=== PATIENT | male | born 1945 | race Caucasian/White ===

== ENCOUNTER 2023-02-15 17:44 | Inpatient (IN) | payer OTHER, MEDICAID, SELFPAY ==
[2023-02-15] VITALS (9 sets, daily range): BP systolic 97–124; BP diastolic 59–68; PULSE 85–124; RESP 18–21; TEMP 36.9–37.1; O2SAT 95–100
--- NOTE | ~2023-02-15 | XR_ITS ---
EXAMINATION: XR chest 1V portable Exam Date/Time: 02/15/2023 18:00 ORDER DISPATCHER CHIEF HISTORY: weakness Comparison: 02/16/2017; CT cap 04/15/2017. RESULT: Lines, tubes, and devices: None. Lungs and pleura: Emphysematous/senescent change. Volume loss and architectural distortion in the le ft lung. Right basilar subsegmental airspace disease with minimal right lateral costophrenic angle bl unting. Cardiomediastinal silhouette: Stable. Other: No acute osseous or upper abdominal finding. IMPRESSION: Subsegmental right basilar opacity may represent atelectasis given the adjacent volume loss. Infectio n/aspiration not excluded. Severe emphysematous change. Reviewed, dictated and finalized at location K. R DISPATCHER CHIEF IMPRESSION: Subsegmental right basilar opacity may represent atelectasis given the adjacent volume loss. Infection/aspiration not excluded. Severe emphysematous change.
--- NOTE | 2023-02-15 17:52 | ECG_ITS ---
Measurements Intervals [place] Rate: 97 P: [place]: 0 QRS: -37 QRSD: 84 T: 87 QT: 344 QTc: 437 Interpretive Statements SUPRAVENTRICULAR RHYTHM (SIGNIFICANT BASELINE ARTIFACT) LEFT AXIS DEVIATION BORDERLINE ST-T WAVE ABNORMALITY- ANTEROLATERAL LEADS BASELINE ARTIFACT- I, II, III, AVR, AVL, AVF, V1-V6 ABNORMAL ECG NO PREVIOUS ECG AVAILABLE FOR COMPARISON Electronically Signed On 02-15-2023 19:26:37 [employer] OFFICER by Isrrael Cuevas D.O.
[2023-02-15 18:18] LABS: Alanine Aminotransferase 17 U/L (6-50); Albumin Level 3.5 g/dL (3.5-5.1); Alkaline Phosphatase 73 U/L (38-126); Anion Gap 9 mmol/L (8-16); Aspartate Amino Transferase 53 U/L (17-59); Bilirubin,Total 0.6 mg/dL (0.2-1.3); Blood Urea Nitrogen 32 mg/dL (9-20); Calcium 8.3 mg/dL (8.4-10.2); Carbon Dioxide 30 mmol/L (22-30); Chloride 98 mmol/L (98-107); Estimated CRCL calculation 35 ml/min; Estimated Glomerular Filt Rate 42; Glucose 113 mg/dL (65-110); Potassium 4.2 mmol/L (3.4-5.0); Sodium 137 mmol/L (137-145)
[2023-02-15 18:27] LABS: Basophils Percent Auto 0.1 % (0.2-1.2); Hematocrit 38.3 % (42.0-52.0); Hemoglobin 12.2 g/dL (14.0-18.0); Immature Granulocyte Absolute 0.04 K/mm3 (0.00-0.031); Immature Granulocyte Percent A 0.5 % (0-0.5); Lymphocytes Absolute Auto 1.41 K/mm3 (0.9-3.2); Lymphocytes Percent Auto 17.1 % (18.3-44.2); Mean Corpuscular HGB Conc 31.9 g/dl (32-36); Mean Corpuscular Hemoglobin 30.3 pg (26-34); Mean Corpuscular Volume 95.3 fl (80-100); Monocytes Absolute Auto 0.8 K/mm3 (0.1-0.6); Monocytes Percent Auto 9.2 % (2.6-8.5); Neutrophils Percent Auto 73.1 % (45.5-73.1); Platelet Count Result 168 k/mm3 (150-375); Red Blood Count 4.02 M/mm3 (4.6-6.20); Red Cell Distribution Width 13.2 % (11.5-14.5); White Blood Count 8.3 K/mm3 (4.5-10.0)
--- NOTE | 2023-02-15 18:45 | ECG_ITS ---
Measurements Intervals [place] Rate: 93 P: 87 [place]: 158 QRS: -18 QRSD: 90 T: 86 QT: 336 QTc: 418 Interpretive Statements SINUS OR ECTOPIC ATRIAL RHYTHM (SIGNIFICANT BASELINE ARTIFACT) LOW QRS VOLTAGE IN PRECORDIAL LEADS BASELINE ARTIFACT- I, II, III, AVR, AVL, AVF, V1-V6 BORDERLINE ECG COMPARED TO ECG 02/15/2023 18:00:23 SINUS OR ECTOPIC ATRIAL RHYTHM NOW PRESENT Electronically Signed On 02-15-2023 19:30:08 FIRE SYSTEMS INSPECTOR by Isrrael Cuevas D.O.
[2023-02-15 18:53] LABS: Influenza A QL RT-PCR Negative (Negative); Influenza B QL RT-PCR Negative (Negative); RSV RNA, RT-PCR Negative (Negative); SARS-CoV-2 RNA PCR Positive (Negative)
--- NOTE | 2023-02-15 19:15 | PC.NURSE ---
at bedside states pt is nonverbal. Denies any diagnosis associated with non verbal, states He just doesn't talk . Pt COPD requires home oxygen at 2l. Requiring oxygen at 4l. Rhonchi thru out all lung [place] with congested cough
--- NOTE | 2023-02-15 19:28 | ED.WEAKNESS ---
HPI - Weakness General Chief complaint: Weakness Stated complaint: AMS, weak, lethargic x 2 days Time Seen by Provider: 02/15/23 18:35 History of Present Illness HPI Narrative: 77-year-old male with history of COPD on 4 L nasal cannula presenting with generalized weakness. Patient's is at bedside and helps with the history. He states that he has been increasingly weak her the last few days. He has been having an increasingly productive cough. Today he was so weak that she was unable to get him off of the toilet. States that he has had decreased appetite. They have been trying breathing treatments which helped some cough up a lot of phlegm. He denies any pain. No nausea or vomiting. He has been having diarrhea. Related Data Home Medications Medication Instructions Recorded Confirmed budesonide 0.5 mg/2 mL suspension 0.5 mg inhalation PRN PRN wheezes 02/16/23 02/16/23 for nebulization gabapentin 300 mg capsule 300 mg PO TID 02/16/23 02/16/23 ipratropium 0.5 mg-albuterol 3 mg 3 ml inhalation PRN PRN Shortness 02/16/23 02/16/23 (2.5 mg base)/3 mL nebulization Of Breath Or Wheezing soln omeprazole 40 mg capsule,delayed 40 mg PO DAILY 02/16/23 02/16/23 release risperidone 2 mg tablet 2 mg PO DAILY 02/16/23 02/16/23 Allergies Allergy/AdvReac Type Severity Reaction Status Date / Time No Known Allergies Allergy Mild Verified 02/15/23 19:17 Review of Systems Review of Systems: All systems reviewed & are unremarkable except as noted in HPI and below [facility] Family History Family History Mother Family history of diabetes mellitus in first degree relative Family history of heart disease in male family member before age 55 Social History Social History Smoking status: Former smoker Tobacco type: cigarettes Alcohol intake: never Substance use: never Substance use type: does not use Do You Feel Safe in your Home?: Yes Lack of Transportation: No Lack of Food: Never True Current Housing: I Have Housing Concerned About Future Housing: No Difficulty Paying Gas/Electric Bills: No Difficulty Paying for Meds: No Currently Unemployed: No Education: Grade School Difficulty w/ Childcare or Family Care: No Spiritual care concerns: No Exam Narrative: GENERAL: Appears chronically ill, nontoxic, no acute distress HEAD: Normocephalic, atraumatic. EYES: PERRLA and EOMI. ENT: Mucous membranes moist. NECK: Supple. CHEST: No respiratory distress. diminished breath sounds bilaterally with scattered wheezing, on baseline 4L NC HEART: Regular rate and rhythm. ABDOMEN: Soft, nontender, nondistended EXTREMITIES: Normal range of motion. No edema. SKIN: Warm, dry, no rash. NEURO: Alert and oriented x3. PSYCH: Normal mood and affect. Course Vital Signs Vital signs: Vital Signs Temperature 98.8 F 02/15/23 17:46 Pulse Rate 96 02/15/23 17:46 Respiratory Rate 20 02/15/23 17:46 Blood Pressure 123/68 02/15/23 17:46 Pulse Oximetry 96 02/15/23 17:46 Oxygen Delivery Nasal Cannula 02/15/23 17:46 Oxygen Flow Rate 4 02/15/23 17:46 Temperature 97.2 F L 02/18/23 05:28 Pulse Rate 80 02/18/23 14:13 Respiratory Rate 16 02/18/23 14:13 Blood Pressure 105/59 L 02/18/23 05:28 Pulse Oximetry 98 02/18/23 08:30 Oxygen Delivery Nasal Cannula 02/18/23 08:30 Oxygen Flow Rate 4 02/18/23 08:30 MDM - Weakness MDM Narrative Medical decision making narrative: 77-year-old male presenting with generalized weakness. Vitals are stable. He is on his baseline 4 L nasal cannula and saturating well. He does have diminished breath sounds bilaterally with scattered wheezing. Will treat with some steroids, breathing treatment, fluids. patient is positive for COVID-19. Patient feels his breathing is a bit better after the breathing treat
[2023-02-15] MEDS: ALBUTEROL SULFATE NEB 2.5 MG/3 ML INH 10 MG INHALATION (19:47)
[2023-02-15] MEDS: IPRATROPIUM BR 0.02% INH SOLN 0.5 MG/2.5 ML VIAL INHALATION (19:47)
--- NOTE | 2023-02-15 19:50 | PC.NURSE ---
Patient's states the patient does not talk much. States he normally is up and walking around the house and toileting on his own. states he has been too weak to care for himself today and has been incontinent. Per , patient is on oxygen at home, 3.5L NC at all times.
[2023-02-15] MEDS: SODIUM CHLORIDE 0.9% IV 1,000 ML 999 ML IV CONT ×2 (19:56→22:41)
[2023-02-15] MEDS: methylPREDNISolone SOD SUCC 125 MG VIAL IV PUSH (19:56)
[2023-02-15] MEDS: REMDESIVIR 200 MG/NS 250 ML 200 MG/250 ML BAG 250 MG IVPB (23:03)
[2023-02-16] VITALS (18 sets, daily range): BP systolic 104–130; BP diastolic 56–80; PULSE 66–98; RESP 18–21; TEMP 36.3–36.6; O2SAT 92–100; BMI 24.9
--- NOTE | 2023-02-16 00:07 | PC.NURSE ---
This patient, Quincy Romeo, was admitted to Medical Room 346-01. Patient/family oriented to hospital policies and general routines including ID bracelet, bed and alarms, visiting hours, pain management, procedures, bathroom and other care routines, personal items, smoking policy, room service/diet, and visiting hours. Information on how to activate the Rapid Response Team has been discussed. Patient/Family are encouraged to report perceived risks to care and to ask questions if they do not understand what they are told or what they should do.
[2023-02-16] MEDS: ALBUTEROL SULFATE NEB 2.5 MG/3 ML INH INHALATION ×3 (02:48→21:07)
[2023-02-16] MEDS: IPRATROPIUM BR 0.02% INH SOLN 0.5 MG/2.5 ML VIAL INHALATION ×3 (02:48→21:07)
--- NOTE | 2023-02-16 10:36 | PCRCNOTE ---
Window of time for administration has passed. See next scheduled administration.
--- NOTE | 2023-02-16 12:17 | PM.IMHP ---
H&P: HPI History of Present Illness Date/Time: 02/16/23 12:17 Chief Complaint: Cough shortness Narrative: Patient is 77-year-old male with history of COPD on home oxygen of 4 L comes to the hospital with generalized weakness. Patient's is at bedside in addition given some detailed history at that time. Patient has been progressively getting weak with productive cough and shortness of breath patient unable to get up go to the bathroom. Has lost his appetite and taste. Cough has been productive of lot of phlegm no chest pain no nausea vomiting hematemesis or chills. Patient was admitted ED and was noted to be COVID positive Review of Systems Constitutional: Constitutional: Reports body ache(s) ENT: Reports Normal hearing present, Reports nasal congestion and Reports nasal discharge Cardiovascular: Cardiovascular: Reports no additional cardiovascular complaints Respiratory: Respiratory: Reports chest congestion and Reports cough Gastrointestinal: Gastrointestinal: Reports no additional gastrointestinal complaints Musculoskeletal: Musculoskeletal: Reports back pain and Reports myalgias PMFSH Family History Family History Mother Family history of diabetes mellitus in first degree relative Family history of heart disease in male family member before age 55 Social History Social History Smoking status: Former smoker Tobacco type: cigarettes Alcohol intake: never Substance use: never Substance use type: does not use Do You Feel Safe in your Home?: Yes Lack of Transportation: No Lack of Food: Never True Current Housing: I Have Housing Concerned About Future Housing: No Difficulty Paying Gas/Electric Bills: No Difficulty Paying for Meds: No Currently Unemployed: No Education: Grade School Difficulty w/ Childcare or Family Care: No Spiritual care concerns: No Meds Home Medications and Allergies Home Medications Medication Instructions Recorded Confirmed Type budesonide 0.5 mg/2 mL suspension 0.5 mg inhalation PRN PRN wheezes 02/16/23 02/16/23 History for nebulization gabapentin 300 mg capsule 300 mg PO TID 02/16/23 02/16/23 History ipratropium 0.5 mg-albuterol 3 mg 3 ml inhalation PRN PRN Shortness 02/16/23 02/16/23 History (2.5 mg base)/3 mL nebulization Of Breath Or Wheezing soln omeprazole 40 mg capsule,delayed 40 mg PO DAILY 02/16/23 02/16/23 History release risperidone 2 mg tablet 2 mg PO DAILY 02/16/23 02/16/23 History Allergies Allergy/AdvReac Type Severity Reaction Status Date / Time No Known Allergies Allergy Mild Verified 02/15/23 19:17 Vital Signs Vital Signs - 24 hr 02/15/23 17:46 02/15/23 19:47 02/15/23 20:00 Temperature 37.1 C Pulse Rate 96 85 86 Respiratory Rate 20 20 20 Blood Pressure 123/68 97/59 L Pulse Oximetry 96 96 Oxygen Delivery Nasal Cannula Oxygen Flow Rate 4 02/15/23 21:11 02/15/23 21:38 02/15/23 22:05 Temperature 36.9 C Pulse Rate 124 H 116 H 116 H Respiratory Rate 20 20 20 Blood Pressure 124/63 122/65 Pulse Oximetry 100 99 Oxygen Delivery Oxygen Flow Rate 02/15/23 19:50 02/15/23 19:50 02/15/23 23:00 Temperature Pulse Rate 101 H Respiratory Rate 21 H Blood Pressure 113/65 Pulse Oximetry 97 95 Oxygen Delivery Nasal Cannula Oxygen Flow Rate 3 3 02/15/23 23:26 02/16/23 00:00 02/16/23 00:48 Temperature Pulse Rate 93 92 Respiratory Rate 18 Blood Pressure 117/59 L Pulse Oximetry 96 92 Oxygen Delivery High Flow Therapy with Na Oxygen Flow Rate 3.5 02/16/23 01:10 02/16/23 02:30 02/16/23 02:49 Temperature 36.6 C Pulse Rate 80 95 98 Respiratory Rate 20 20 20 Blood Pressure 104/71 Pulse Oximetry 98 Oxygen Delivery Oxygen Flow Rate 02/16/23 04:00 02/16/23 06:00 02/16/23 08:00 Temperature 36.3 C L Pulse Rate 73
[2023-02-16] MEDS: GABAPENTIN 300 MG CAPSULE PO ×2 (12:55→17:56)
[2023-02-16] MEDS: DEXTROSE 5%/0.45% SOD CHL 1,000 ML 100 ML IV CONT ×2 (12:56→22:18)
[2023-02-16] MEDS: DEXAMETHASONE SOD PHOS INJ 4 MG/ML VIAL IV PUSH ×3 (12:56→23:50)
[2023-02-16 14:14] LABS: Basophils Percent Auto 0.2 % (0.2-1.2); Hematocrit 38.2 % (42.0-52.0); Hemoglobin 11.7 g/dL (14.0-18.0); Immature Granulocyte Absolute 0.04 K/mm3 (0.00-0.031); Immature Granulocyte Percent A 0.4 % (0-0.5); Immature Platelet Fraction Pct 2.7 % (0.9-11.2); Lymphocytes Absolute Auto 0.63 K/mm3 (0.9-3.2); Lymphocytes Percent Auto 7.1 % (18.3-44.2); Mean Corpuscular HGB Conc 30.6 g/dl (32-36); Mean Corpuscular Hemoglobin 30.2 pg (26-34); Mean Corpuscular Volume 98.5 fl (80-100); Mean Platelet Volume 9.6 fl (7.4-10.4); Monocytes Absolute Auto 0.3 K/mm3 (0.1-0.6); Monocytes Percent Auto 3.3 % (2.6-8.5); Neutrophils Absolute Auto 7.9 K/mm3 (1.3-6.7); Platelet Count Result 160 k/mm3 (150-375); Red Blood Count 3.88 M/mm3 (4.6-6.20); Red Cell Distribution Width 13.3 % (11.5-14.5); White Blood Count 8.9 K/mm3 (4.5-10.0)
[2023-02-16 14:23] LABS: Alanine Aminotransferase 20 U/L (6-50); Albumin Level 3.1 g/dL (3.5-5.1); Alkaline Phosphatase 59 U/L (38-126); Anion Gap 11 mmol/L (8-16); Aspartate Amino Transferase 71 U/L (17-59); Bilirubin,Total 0.5 mg/dL (0.2-1.3); Blood Urea Nitrogen 29 mg/dL (9-20); Carbon Dioxide 21 mmol/L (22-30); Chloride 106 mmol/L (98-107); Estimated CRCL calculation 47 ml/min; Estimated Glomerular Filt Rate > 60; Glucose 136 mg/dL (65-110); Potassium 3.7 mmol/L (3.4-5.0); Sodium 138 mmol/L (137-145)
[2023-02-16 14:50] LABS: Platelet Estimate Adequate (Adequate)
[2023-02-16 14:51] LABS: Hypochromasia 1+ (NORMAL); Schistocytes None Seen (NORMAL)
[2023-02-16] MEDS: PANTOPRAZOLE 40 MG TABLET PO (22:18)
[2023-02-16] MEDS: REMDESIVIR 100 MG/NS 250 ML 100 MG/250 ML BAG 250 MG IVPB (22:18)
[2023-02-17] VITALS (18 sets, daily range): BP systolic 114–140; BP diastolic 63–68; PULSE 63–102; RESP 18–20; TEMP 36.2–36.4; O2SAT 91–100
[2023-02-17] MEDS: IPRATROPIUM BR 0.02% INH SOLN 0.5 MG/2.5 ML VIAL INHALATION ×4 (01:15→20:13)
[2023-02-17] MEDS: ALBUTEROL SULFATE NEB 2.5 MG/3 ML INH INHALATION ×4 (01:15→20:13)
[2023-02-17] MEDS: DEXAMETHASONE SOD PHOS INJ 4 MG/ML VIAL IV PUSH ×4 (05:41→23:11)
[2023-02-17 06:11] LABS: Prothrombin Time 13.9 Seconds (11.1-14.7)
[2023-02-17 06:45] LABS: Alanine Aminotransferase 20 U/L (6-50); Albumin Level 2.9 g/dL (3.5-5.1); Alkaline Phosphatase 66 U/L (38-126); Aspartate Amino Transferase 63 U/L (17-59); Bilirubin,Total 0.3 mg/dL (0.2-1.3)
[2023-02-17] MEDS: PANTOPRAZOLE 40 MG TABLET PO ×2 (09:53→21:30)
[2023-02-17] MEDS: ENOXAPARIN 40 MG/0.4 ML SYRINGE SUB-Q (09:53)
[2023-02-17] MEDS: risperiDONE 1 MG TABLET 2 MG PO (09:53)
[2023-02-17] MEDS: GABAPENTIN 300 MG CAPSULE PO ×3 (09:53→17:25)
--- NOTE | 2023-02-17 12:51 | PM.IMPN ---
Progress Note: A&P Assessment and Plan (1) Acute respiratory failure with hypoxia: Code(s): J96.01 - Acute respiratory failure with hypoxia Status: Acute (2) Generalized weakness: Code(s): R53.1 - Weakness Status: Acute (3) Hypertension: Qualifiers: Hypertension type: primary hypertension Qualified Code(s): I10 - Essential (primary) hypertension Code(s): I10 - Essential (primary) hypertension Status: Acute (4) COVID: Code(s): U07.1 - COVID-19 Status: Acute Plan Acute respiratory failure with hypoxemia/COPD Patient advice to quit smoking. Bronchodilators. Spirometry and chest x-ray reviewed Routine exercises. Pneumoniae and flu vaccines as advised Pulmonary rehab if indicated. Evaluation for home O2 if saturations less than 88% on room air Follow-up with primary care and tariff clerk routine Start PT OT eval and treat. Creatinine normal and saturation 98% on room air COVID Started on remdesivir and dexamethasone.? Monitor oxygen saturation.? Supportive care with IR of DVT prophylaxis. Lovenox GI prophylaxis. Protonix All records reviewed Discussed plan of care with the nursing staff and with the patient in detail. Answered all questions and concerns from the patient. All labs have been reviewed. Code status updated dictation may have been done utilizing a voice recognition system. Attempts have been made to correct errors. However, there may be uncorrected grammatical, spelling, and recognition errors present. Subjective Date/time seen: 02/17/23 12:51 Interval history: Patient denied any complaints no fever no chills no nausea no vomiting being treated for COVID 19 and COPD Review of Systems Review of Systems: All systems reviewed & are unremarkable except as noted in HPI and below Exam Narrative: GENERAL: Well appearing, no acute distress. HEAD: Normocephalic, atraumatic. NECK: Supple. No adenopathy, no masses. RESPIRATORY: respirations nonlabored. , no rales, wheezing. CARDIOVASCULAR: Regular rate and rhythm without murmurs, . Peripheral pulses 2+ and equal bilaterally. ABDOMINAL: Soft, nontender, nondistended, no hepatosplenomegaly. Normoactive BS. MUSCULOSKELETAL: no Epigastric and no hypochondrial tenderness SKIN: Warm, dry, NEURO: A&O X3. Moves all extremities Objective Data Vital Signs Vital Signs: Vital Signs - 24 hr 02/16/23 13:05 02/16/23 13:05 02/16/23 13:21 Temperature Pulse Rate 80 77 Respiratory Rate 20 20 Blood Pressure Pulse Oximetry 97 Oxygen Delivery Nasal Cannula Oxygen Flow Rate 3.5 02/16/23 15:33 02/16/23 17:06 02/16/23 16:00 Temperature 36.3 C L Pulse Rate 73 78 Respiratory Rate 18 Blood Pressure 117/56 L Pulse Oximetry 100 Oxygen Delivery Nasal Cannula Oxygen Flow Rate 3.5 02/16/23 21:07 02/16/23 21:07 02/16/23 21:21 Temperature 36.3 C L Pulse Rate 82 75 Respiratory Rate 20 21 H Blood Pressure 130/76 Pulse Oximetry 97 100 Oxygen Delivery Nasal Cannula Oxygen Flow Rate 3.5 02/16/23 20:00 02/16/23 20:00 02/17/23 00:00 Temperature Pulse Rate 83 78 Respiratory Rate Blood Pressure Pulse Oximetry Oxygen Delivery Room Air Oxygen Flow Rate 02/17/23 01:15 02/16/23 21:35 02/17/23 01:40 Temperature Pulse Rate 80 80 86 Respiratory Rate 20 20 20 Blood Pressure Pulse Oximetry Oxygen Delivery Oxygen Flow Rate 02/17/23 04:00 02/17/23 06:55 02/17/23 06:55 Temperature Pulse Rate 71 82 82 Respiratory Rate 18 18 Blood Pressure Pulse Oximetry 95 Oxygen Delivery Nasal Cannula Oxygen Flow Rate 3.5 02/17/23 07:02 02/17/23 06:00 02/17/23 08:00 Temperature 36.4 C Pulse Rate 84 73 88 Respiratory Rate 20 20 Blood Pressure 129/65 Pulse Oximetry 98 Oxygen Delivery Oxygen Flow Rate Intake/Output Intake/Output: Intake & Output 02/14/23 02/15/2302/07
[2023-02-17] MEDS: DEXTROSE 5%/0.45% SOD CHL 1,000 ML 100 ML IV CONT (15:06)
[2023-02-17] MEDS: REMDESIVIR 100 MG/NS 250 ML 100 MG/250 ML BAG 250 MG IVPB (21:30)
[2023-02-18] VITALS (17 sets, daily range): BP systolic 105–135; BP diastolic 59–75; PULSE 63–102; RESP 16–18; TEMP 36.2–36.6; O2SAT 97–100
[2023-02-18] MEDS: DEXTROSE 5%/0.45% SOD CHL 1,000 ML 100 ML IV CONT ×2 (01:10→11:28)
[2023-02-18] MEDS: IPRATROPIUM BR 0.02% INH SOLN 0.5 MG/2.5 ML VIAL INHALATION ×4 (02:38→20:54)
[2023-02-18] MEDS: ALBUTEROL SULFATE NEB 2.5 MG/3 ML INH INHALATION ×4 (02:38→20:53)
[2023-02-18] MEDS: DEXAMETHASONE SOD PHOS INJ 4 MG/ML VIAL IV PUSH ×3 (05:38→17:43)
[2023-02-18 06:02] LABS: Bacteria Urine 4+ /hpf; Non Pathogenic Casts 0-2; RBC Urine 0-2 /hpf (0-2); Squamous Epithelial Cell Urine None seen /hpf (Few); WBC Urine 0-5 /hpf
[2023-02-18 06:22] LABS: Appearance Urine Cloudy (Clear); Color Urine Light Yellow (Yellow)
[2023-02-18 06:24] LABS: Add Urine Microscopic? YES; Bilirubin Urine Negative (Negative); Blood Urine Trace-Intact (Negative); Glucose Urine UA Trace mg/dL (Negative); Ketones Urine Negative (Negative); Leukocyte Esterase Ur Negative LEU/UL (Negative); Nitrate Urine Negative (Negative); Protein Urine 1+ mg/dL (Negative); Urobilinogen Urine 0.2 mg/dL (<2.0)
[2023-02-18] MEDS: PANTOPRAZOLE 40 MG TABLET PO ×2 (09:05→22:15)
[2023-02-18] MEDS: risperiDONE 1 MG TABLET 2 MG PO (09:05)
[2023-02-18] MEDS: GABAPENTIN 300 MG CAPSULE PO ×3 (09:06→17:43)
[2023-02-18] MEDS: ENOXAPARIN 40 MG/0.4 ML SYRINGE SUB-Q (09:06)
[2023-02-18 09:41] LABS: Hemoglobin 11.5 g/dL (14.0-18.0); Mean Corpuscular HGB Conc 31.1 g/dl (32-36); Mean Corpuscular Hemoglobin 29.4 pg (26-34); Mean Corpuscular Volume 94.6 fl (80-100); Mean Platelet Volume 9.6 fl (7.4-10.4); Platelet Count Result 157 k/mm3 (150-375); Red Blood Count 3.91 M/mm3 (4.6-6.20); Red Cell Distribution Width 13.3 % (11.5-14.5)
[2023-02-18 09:48] LABS: Alanine Aminotransferase 20 U/L (6-50); Albumin Level 2.7 g/dL (3.5-5.1); Alkaline Phosphatase 68 U/L (38-126); Anion Gap 7 mmol/L (8-16); Aspartate Amino Transferase 35 U/L (17-59); Bilirubin,Total 0.2 mg/dL (0.2-1.3); Blood Urea Nitrogen 24 mg/dL (9-20); Calcium 8.5 mg/dL (8.4-10.2); Carbon Dioxide 24 mmol/L (22-30); Chloride 107 mmol/L (98-107); Estimated CRCL calculation 51 ml/min; Estimated Glomerular Filt Rate > 60; Glucose 161 mg/dL (65-110); Potassium 3.6 mmol/L (3.4-5.0); Sodium 138 mmol/L (137-145)
--- NOTE | 2023-02-18 12:05 | PM.IMPN ---
Progress Note: A&P Assessment and Plan (1) Acute respiratory failure with hypoxia: Code(s): J96.01 - Acute respiratory failure with hypoxia Status: Acute (2) Generalized weakness: Code(s): R53.1 - Weakness Status: Acute (3) Hypertension: Qualifiers: Hypertension type: primary hypertension Qualified Code(s): I10 - Essential (primary) hypertension Code(s): I10 - Essential (primary) hypertension Status: Acute (4) COVID: Code(s): U07.1 - COVID-19 Status: Acute Plan Acute respiratory failure with hypoxemia/COPD Patient advice to quit smoking. Bronchodilators. Evaluation for home O2 if saturations less than 88% on room air Follow-up with primary care and ply splicer routine Start PT OT eval and treat. Creatinine normal and saturation 98% on room air COVID Started on remdesivir and dexamethasone.? Monitor oxygen saturation.? Supportive care spoke to in detail answered all questions DVT prophylaxis. Lovenox GI prophylaxis. Protonix All records reviewed Discussed plan of care with the nursing staff and with the patient in detail. Answered all questions and concerns from the patient. All labs have been reviewed. Code status updated dictation may have been done utilizing a voice recognition system. Attempts have been made to correct errors. However, there may be uncorrected grammatical, spelling, and recognition errors present. Subjective Date/time seen: 02/18/23 12:05 Interval history: Patient denied any complaints no fever no chills no nausea no vomiting being treated for COVID 19 and COPD Review of Systems Review of Systems: All systems reviewed & are unremarkable except as noted in HPI and below Exam Narrative: GENERAL: Well appearing, no acute distress. HEAD: Normocephalic, atraumatic. NECK: Supple. No adenopathy, no masses. RESPIRATORY: respirations nonlabored. , no rales, wheezing. CARDIOVASCULAR: Regular rate and rhythm without murmurs, . Peripheral pulses 2+ and equal bilaterally. ABDOMINAL: Soft, nontender, nondistended, no hepatosplenomegaly. Normoactive BS. MUSCULOSKELETAL: no Epigastric and no hypochondrial tenderness SKIN: Warm, dry, NEURO: A&O X3. Moves all extremities Objective Data Vital Signs Vital Signs: Vital Signs - 24 hr 02/17/23 12:56 02/17/23 13:02 02/17/23 13:57 Temperature 36.2 C L Pulse Rate 84 83 63 Respiratory Rate 20 20 18 Blood Pressure 114/63 Pulse Oximetry 91 Oxygen Delivery Oxygen Flow Rate 02/17/23 16:00 02/17/23 20:15 02/17/23 20:36 Temperature Pulse Rate 76 90 Respiratory Rate 18 Blood Pressure Pulse Oximetry 94 Oxygen Delivery Nasal Cannula Oxygen Flow Rate 4 02/17/23 20:27 02/17/23 21:27 02/17/23 20:00 Temperature 36.4 C Pulse Rate 91 102 H Respiratory Rate 18 20 Blood Pressure 140/68 Pulse Oximetry 97 100 Oxygen Delivery Nasal Cannula Oxygen Flow Rate 3.5 02/18/23 02:39 02/18/23 02:50 02/17/23 20:00 Temperature Pulse Rate 96 97 80 Respiratory Rate 18 18 Blood Pressure Pulse Oximetry Oxygen Delivery Oxygen Flow Rate 02/18/23 00:00 02/18/23 04:00 02/18/23 05:28 Temperature 36.2 C L Pulse Rate 63 82 89 Respiratory Rate 18 Blood Pressure 105/59 L Pulse Oximetry 99 Oxygen Delivery Oxygen Flow Rate 02/18/23 08:27 02/18/23 08:30 02/18/23 08:43 Temperature Pulse Rate 80 77 Respiratory Rate 18 18 Blood Pressure Pulse Oximetry 98 Oxygen Delivery Nasal Cannula Oxygen Flow Rate 4 02/18/23 08:00 Temperature Pulse Rate 73 Respiratory Rate Blood Pressure Pulse Oximetry Oxygen Delivery Oxygen Flow Rate Intake/Output Intake/Output: Intake & Output 02/15/23 02/16/23 02/17/23 02/18/23 23:59 23:59 23:59 23:59 Intake Total 1000 1690 2430 2050 Output Total 300 700 Balance 1000 1690 2130 1350 Meds/Results Medications: Active Medi
[2023-02-18] MEDS: REMDESIVIR 100 MG/NS 250 ML 100 MG/250 ML BAG 250 MG IVPB (22:15)
[2023-02-19] VITALS (15 sets, daily range): BP systolic 106–136; BP diastolic 65–74; PULSE 65–101; RESP 18; TEMP 36.4; O2SAT 95–99
[2023-02-19] MEDS: DEXAMETHASONE SOD PHOS INJ 4 MG/ML VIAL IV PUSH ×3 (00:38→12:50)
[2023-02-19] MEDS: DEXTROSE 5%/0.45% SOD CHL 1,000 ML 100 ML IV CONT (03:56)
[2023-02-19 05:49] LABS: Hematocrit 33.9 % (42.0-52.0); Hemoglobin 10.9 g/dL (14.0-18.0); Mean Corpuscular HGB Conc 32.2 g/dl (32-36); Mean Corpuscular Hemoglobin 29.9 pg (26-34); Mean Corpuscular Volume 93.1 fl (80-100); Mean Platelet Volume 9.3 fl (7.4-10.4); Platelet Count Result 149 k/mm3 (150-375); Red Blood Count 3.64 M/mm3 (4.6-6.20); Red Cell Distribution Width 13.2 % (11.5-14.5)
[2023-02-19 06:00] LABS: Alanine Aminotransferase 18 U/L (6-50); Albumin Level 2.6 g/dL (3.5-5.1); Alkaline Phosphatase 59 U/L (38-126); Anion Gap 3 mmol/L (8-16); Aspartate Amino Transferase 25 U/L (17-59); Bilirubin,Total 0.2 mg/dL (0.2-1.3); Blood Urea Nitrogen 20 mg/dL (9-20); Calcium 8.4 mg/dL (8.4-10.2); Carbon Dioxide 28 mmol/L (22-30); Chloride 105 mmol/L (98-107); Estimated CRCL calculation 47 ml/min; Estimated Glomerular Filt Rate > 60; Glucose 162 mg/dL (65-110); INR 1.1; Potassium 3.8 mmol/L (3.4-5.0); Sodium 136 mmol/L (137-145)
[2023-02-19] MEDS: ALBUTEROL SULFATE NEB 2.5 MG/3 ML INH INHALATION ×3 (07:59→20:02)
[2023-02-19] MEDS: IPRATROPIUM BR 0.02% INH SOLN 0.5 MG/2.5 ML VIAL INHALATION ×3 (07:59→20:02)
[2023-02-19] MEDS: ENOXAPARIN 40 MG/0.4 ML SYRINGE SUB-Q (09:42)
[2023-02-19] MEDS: PANTOPRAZOLE 40 MG TABLET PO ×2 (09:42→21:22)
[2023-02-19] MEDS: risperiDONE 1 MG TABLET 2 MG PO (09:42)
[2023-02-19] MEDS: GABAPENTIN 300 MG CAPSULE PO ×3 (09:42→17:27)
--- NOTE | 2023-02-19 11:24 | PM.IMPN ---
Progress Note: A&P Assessment and Plan (1) Acute respiratory failure with hypoxia: Code(s): J96.01 - Acute respiratory failure with hypoxia Status: Acute (2) Generalized weakness: Code(s): R53.1 - Weakness Status: Acute (3) Hypertension: Qualifiers: Hypertension type: primary hypertension Qualified Code(s): I10 - Essential (primary) hypertension Code(s): I10 - Essential (primary) hypertension Status: Acute (4) COVID: Code(s): U07.1 - COVID-19 Status: Acute Plan Acute respiratory failure with hypoxemia/COPD Patient advice to quit smoking. Bronchodilators. Evaluation for home O2 if saturations less than 88% on room air Follow-up with primary care and receptionist scheduler routine PT OT eval and treat. Creatinine normal and saturation 98% on room air COVID Started on remdesivir and dexamethasone.? Monitor oxygen saturation.? Supportive care spoke to in detail answered all questions Would like to finish the remdesivir tomorrow and possible discharge if medically stable DVT prophylaxis. Lovenox GI prophylaxis. Protonix All records reviewed Discussed plan of care with the nursing staff and with the patient in detail. Answered all questions and concerns from the patient. All labs have been reviewed. Code status updated dictation may have been done utilizing a voice recognition system. Attempts have been made to correct errors. However, there may be uncorrected grammatical, spelling, and recognition errors present. Subjective Date/time seen: 02/19/23 11:24 Interval history: Patient denied any complaints no fever no chills no nausea no vomiting being treated for COVID 19 and COPD Review of Systems Review of Systems: All systems reviewed & are unremarkable except as noted in HPI and below Exam Narrative: GENERAL: Well appearing, no acute distress. HEAD: Normocephalic, atraumatic. NECK: Supple. No adenopathy, no masses. RESPIRATORY: respirations nonlabored. , no rales, wheezing. CARDIOVASCULAR: Regular rate and rhythm without murmurs, . Peripheral pulses 2+ and equal bilaterally. ABDOMINAL: Soft, nontender, nondistended, no hepatosplenomegaly. Normoactive BS. MUSCULOSKELETAL: no Epigastric and no hypochondrial tenderness SKIN: Warm, dry, NEURO: A&O X3. Moves all extremities Objective Data Vital Signs Vital Signs: Vital Signs - 24 hr 02/18/23 13:58 02/18/23 14:13 02/18/23 13:50 Temperature Pulse Rate 75 80 Respiratory Rate 16 16 Blood Pressure Pulse Oximetry Oxygen Delivery Nasal Cannula Oxygen Flow Rate 4 02/18/23 12:00 02/18/23 17:44 02/18/23 16:00 Temperature 36.4 C L Pulse Rate 90 102 H 89 Respiratory Rate 18 Blood Pressure 135/65 Pulse Oximetry 100 Oxygen Delivery Oxygen Flow Rate 02/18/23 19:50 02/18/23 20:54 02/18/23 20:54 Temperature 36.6 C Pulse Rate 100 78 Respiratory Rate 18 18 18 Blood Pressure 124/75 Pulse Oximetry 97 97 Oxygen Delivery Nasal Cannula Oxygen Flow Rate 4 02/18/23 20:00 02/19/23 04:03 02/18/23 20:00 Temperature 36.4 C Pulse Rate 82 100 Respiratory Rate 18 Blood Pressure 136/74 Pulse Oximetry 97 97 Oxygen Delivery Nasal Cannula Oxygen Flow Rate 3.5 02/19/23 00:00 02/19/23 04:00 02/19/23 08:02 Temperature Pulse Rate 75 69 Respiratory Rate 18 Blood Pressure Pulse Oximetry 95 Oxygen Delivery Nasal Cannula Oxygen Flow Rate 4 02/19/23 08:02 02/19/23 08:20 02/19/23 08:00 Temperature Pulse Rate 84 86 81 Respiratory Rate 18 18 Blood Pressure Pulse Oximetry Oxygen Delivery Oxygen Flow Rate Intake/Output Intake/Output: Intake & Output 02/16/23 02/17/23 02/18/23 02/19/23 23:59 23:59 23:59 23:59 Intake Total 1690 2430 2620 1000 Output Total 300 900 Balance 1690 2130 1720 1000 Meds/Results Medications: Active Medications Generic Name Dose Route Start Last Adm
[2023-02-19] MEDS: REMDESIVIR 100 MG/NS 250 ML 100 MG/250 ML BAG 250 MG IVPB (22:58)
[2023-02-20] VITALS (16 sets, daily range): BP systolic 109–146; BP diastolic 58–78; PULSE 57–97; RESP 16–24; TEMP 36.3–36.8; O2SAT 91–100
[2023-02-20] MEDS: IPRATROPIUM BR 0.02% INH SOLN 0.5 MG/2.5 ML VIAL INHALATION ×4 (02:10→20:55)
[2023-02-20] MEDS: ALBUTEROL SULFATE NEB 2.5 MG/3 ML INH INHALATION ×4 (02:10→20:55)
[2023-02-20] MEDS: ACETAMINOPHEN 325 MG TABLET 650 MG PO ×2 (05:05→09:24)
--- NOTE | 2023-02-20 09:00 | PM.IMPN ---
Progress Note: A&P Assessment and Plan (1) COPD (chronic obstructive pulmonary disease): Code(s): J44.9 - Chronic obstructive pulmonary disease, unspecified Status: Acute (2) Acute respiratory failure with hypoxia: Code(s): J96.01 - Acute respiratory failure with hypoxia Status: Acute (3) Generalized weakness: Code(s): R53.1 - Weakness Status: Acute (4) COVID: Code(s): U07.1 - COVID-19 Status: Acute Plan Acute respiratory failure with hypoxemia/COPD Patient advice to quit smoking. Bronchodilators. Creatinine normal and saturation 98% on room air Will start patient on azithromycin and possible discharge home tomorrow if clinically better COVID Completed remdesivir and dexamethasone.? Monitor oxygen saturation.? Supportive care spoke to in detail answered all questions DVT prophylaxis. Lovenox GI prophylaxis. Protonix All records reviewed Discussed plan of care with the nursing staff and with the patient in detail. Answered all questions and concerns from the patient. All labs have been reviewed. Code status updated dictation may have been done utilizing a voice recognition system. Attempts have been made to correct errors. However, there may be uncorrected grammatical, spelling, and recognition errors present. Subjective Date/time seen: 02/20/23 09:00 Interval history: The patient was treated with remdesivir for COVID. Still continues to cough and shortness of breath Review of Systems Review of Systems: All systems reviewed & are unremarkable except as noted in HPI and below Exam Narrative: GENERAL: Well appearing, no acute distress. HEAD: Normocephalic, atraumatic. NECK: Supple. No adenopathy, no masses. RESPIRATORY: respirations nonlabored. , no rales, wheezing. CARDIOVASCULAR: Regular rate and rhythm without murmurs, . Peripheral pulses 2+ and equal bilaterally. ABDOMINAL: Soft, nontender, nondistended, no hepatosplenomegaly. Normoactive BS. MUSCULOSKELETAL: no Epigastric and no hypochondrial tenderness SKIN: Warm, dry, NEURO: A&O X3. Moves all extremities Objective Data Vital Signs Vital Signs: Vital Signs - 24 hr 02/19/23 09:42 02/19/23 12:00 02/19/23 13:27 Temperature Pulse Rate 65 79 Respiratory Rate 18 Blood Pressure Pulse Oximetry 95 Oxygen Delivery Nasal Cannula Oxygen Flow Rate 3.5 02/19/23 13:42 02/19/23 16:00 02/19/23 19:51 Temperature 36.4 C Pulse Rate 82 82 101 H Respiratory Rate 18 18 Blood Pressure 106/65 Pulse Oximetry 99 Oxygen Delivery Oxygen Flow Rate 02/19/23 20:02 02/19/23 20:02 02/19/23 20:15 Temperature Pulse Rate 76 76 81 Respiratory Rate 18 18 Blood Pressure Pulse Oximetry 99 Oxygen Delivery Nasal Cannula Oxygen Flow Rate 4 02/19/23 20:00 02/20/23 02:10 02/20/23 02:18 Temperature Pulse Rate 73 75 Respiratory Rate 18 18 Blood Pressure Pulse Oximetry 97 Oxygen Delivery Nasal Cannula Oxygen Flow Rate 3 02/20/23 05:10 02/19/23 20:00 02/20/23 00:00 Temperature 36.6 C Pulse Rate 95 88 84 Respiratory Rate 24 H Blood Pressure 143/66 H Pulse Oximetry 99 Oxygen Delivery Oxygen Flow Rate 02/20/23 04:00 02/20/23 07:29 02/20/23 07:33 Temperature Pulse Rate 63 74 74 Respiratory Rate 18 Blood Pressure Pulse Oximetry 97 Oxygen Delivery Nasal Cannula Oxygen Flow Rate 2 Intake/Output Intake/Output: Intake & Output 02/17/23 02/18/23 02/19/23 02/20/23 23:59 23:59 23:59 23:59 Intake Total 2430 2620 1320 50 Output Total 300 900 150 Balance 2130 1720 1320 -100 Meds/Results Medications: Active Medications Generic Name Dose Route Start Last Admin Trade Name Freq PRN Reason Stop Dose Admin Acetaminophen 650 mg 02/16/23 12:18 02/20/23 05:05 Acetaminophen 325 Mg Tablet PO 650 mg Q4H PRN Administration Mild Pain (1-3) or Fever Albuterol 2.5 mg 01
[2023-02-20] MEDS: risperiDONE 1 MG TABLET 2 MG PO (09:04)
[2023-02-20] MEDS: PANTOPRAZOLE 40 MG TABLET PO ×2 (09:04→20:24)
[2023-02-20] MEDS: GABAPENTIN 300 MG CAPSULE PO ×3 (09:04→17:27)
[2023-02-20] MEDS: AZITHROMYCIN 500 MG/NS 250 ML 500 MG/250 ML BAG 250 MG IVPB (10:26)
--- NOTE | 2023-02-20 12:11 | PCOTNOTE ---
Attempted to see pt for Occupational Therapy treatment. Pt was sleeping at therapist arrival however, woke up with both verbal and tactile cues. When discussing with pt about participating in therapy treatment including sitting up in the chair, pt would only stare at therapist and did not provide a verbal response even with extended time for processing. Pt will nod head to acknowledge that he heard therapist's question. Therapist continued to ask pt about participating in various tasks including self care and/or strengthening, however, pt continues to only stare at therapist or closes his eyes. RN was made aware of pt's observation. Will continue per poc duration/frequency tomorrow.
--- NOTE | 2023-02-20 22:17 | ECG_ITS ---
Measurements Intervals [place] Rate: 118 P: 55 TX: 169 QRS: -44 QRSD: 82 T: 60 QT: 284 QTc: 399 Interpretive Statements SINUS TACHYCARDIA LOW QRS VOLTAGE IN PRECORDIAL LEADS BORDERLINE R WAVE PROGRESSION, ANTERIOR LEADS BORDERLINE ST-T WAVE ABNORMALITY- HIGH LATERAL LEADS CONSIDER INFERIOR INFARCT, AGE INDETERMINATE BASELINE ARTIFACT- I, II, III, AVR, AVL, AVF, V1-V6 ABNORMAL ECG COMPARED TO ECG 02/15/2023 19:16:49 SINUS TACHYCARDIA NOW PRESENT Electronically Signed On 02-21-2023 6:22:12 [employer] by Isrrael Cuevas D.O.
[2023-02-21] VITALS (18 sets, daily range): BP systolic 110–123; BP diastolic 57–67; PULSE 70–110; RESP 16–20; TEMP 36.1–36.7; O2SAT 94–100
[2023-02-21] MEDS: IPRATROPIUM BR 0.02% INH SOLN 0.5 MG/2.5 ML VIAL INHALATION ×4 (02:58→20:30)
[2023-02-21] MEDS: ALBUTEROL SULFATE NEB 2.5 MG/3 ML INH INHALATION ×4 (02:58→20:30)
--- NOTE | 2023-02-21 08:48 | PCPTNOTE ---
Attempted to see patient for PT, however patient was very drowsy, patient would open his eyes to his name but would not answer yes or no if he wanted to work with therapy. Patient would then close his eyes. RN notified and went down to assess patient and asked patient if he wanted to work with PT, patient reported no to RN to working with PT.
[2023-02-21] MEDS: risperiDONE 1 MG TABLET 2 MG PO (09:15)
[2023-02-21] MEDS: PANTOPRAZOLE 40 MG TABLET PO ×2 (09:16→20:28)
[2023-02-21] MEDS: GABAPENTIN 300 MG CAPSULE PO ×3 (09:16→16:56)
[2023-02-21] MEDS: AZITHROMYCIN 500 MG/NS 250 ML 500 MG/250 ML BAG 250 MG IVPB (09:16)
[2023-02-21] MEDS: ENOXAPARIN 40 MG/0.4 ML SYRINGE SUB-Q (09:16)
[2023-02-21] MEDS: ACETAMINOPHEN 325 MG TABLET 650 MG PO (11:04)
--- NOTE | 2023-02-21 15:11 | PM.IMPN ---
Progress Note: A&P Assessment and Plan (1) COPD (chronic obstructive pulmonary disease): Code(s): J44.9 - Chronic obstructive pulmonary disease, unspecified Status: Acute (2) Acute respiratory failure with hypoxia: Code(s): J96.01 - Acute respiratory failure with hypoxia Status: Acute (3) Generalized weakness: Code(s): R53.1 - Weakness Status: Acute (4) COVID: Code(s): U07.1 - COVID-19 Status: Acute Plan Acute respiratory failure with hypoxemia/COPD Patient advice to quit smoking. Bronchodilators. Creatinine normal and saturation 98% on room air Will start patient on azithromycin and possible discharge home tomorrow if clinically better COVID Completed remdesivir and dexamethasone.? Monitor oxygen saturation.? Supportive care spoke to in detail answered all questions Will DC tomorrow if still same DVT prophylaxis. Lovenox GI prophylaxis. Protonix All records reviewed Discussed plan of care with the nursing staff and with the patient in detail. Answered all questions and concerns from the patient. All labs have been reviewed. Code status updated dictation may have been done utilizing a voice recognition system. Attempts have been made to correct errors. However, there may be uncorrected grammatical, spelling, and recognition errors present. Time Spent With Patient Time with patient: 25 - 35 minutes Subjective Date/time seen: 02/21/23 15:11 Interval history: The patient was treated with remdesivir for COVID. Still continues to cough and shortness of breath He is quite deconditioned with background story being that wants him home. Review of Systems Review of Systems: All systems reviewed & are unremarkable except as noted in HPI and below Constitutional: Constitutional: Reports body ache(s) ENT: Reports Normal hearing present, Reports nasal congestion and Reports nasal discharge Cardiovascular: Cardiovascular: Reports no additional cardiovascular complaints Respiratory: Respiratory: Reports chest congestion and Reports cough Gastrointestinal: Gastrointestinal: Reports no additional gastrointestinal complaints Musculoskeletal: Musculoskeletal: Reports back pain and Reports myalgias Neurologic: Reports Normal hearing present Exam Narrative: GENERAL: Well appearing, no acute distress. HEAD: Normocephalic, atraumatic. NECK: Supple. No adenopathy, no masses. RESPIRATORY: respirations nonlabored. , no rales, wheezing. CARDIOVASCULAR: Regular rate and rhythm without murmurs, . Peripheral pulses 2+ and equal bilaterally. ABDOMINAL: Soft, nontender, nondistended, no hepatosplenomegaly. Normoactive BS. MUSCULOSKELETAL: no Epigastric and no hypochondrial tenderness SKIN: Warm, dry, NEURO: A&O X3. Moves all extremities Neuro: Cranial nerves: Yes Normal hearing present Objective Data Vital Signs Vital Signs: Vital Signs - 24 hr 02/20/23 16:00 02/20/23 20:55 02/20/23 21:13 Temperature 97.3 F L Pulse Rate 74 75 57 L Respiratory Rate 18 16 Blood Pressure 146/78 H Pulse Oximetry 91 Oxygen Delivery Oxygen Flow Rate 02/20/23 21:15 02/20/23 20:00 02/21/23 00:00 Temperature Pulse Rate 70 97 110 H Respiratory Rate 18 Blood Pressure Pulse Oximetry Oxygen Delivery Oxygen Flow Rate 02/21/23 02:58 02/21/23 03:07 02/21/23 04:00 Temperature Pulse Rate 75 72 106 H Respiratory Rate 20 20 Blood Pressure Pulse Oximetry Oxygen Delivery Oxygen Flow Rate 02/21/23 06:00 02/21/23 08:18 02/21/23 08:30 Temperature 97.0 F L Pulse Rate 107 H 90 90 Respiratory Rate 17 20 18 Blood Pressure 123/60 Pulse Oximetry 94 95 Oxygen Delivery Nasal Cannula Oxygen Flow Rate 3 02/21/23 08:33 02/21/23 08:00 02/21/23 12:00 Temperature Pulse Rate 83 84 88 Respiratory Rate 20 Blood Pressure Pulse Oximetry Oxygen Delivery Oxygen Flow Rate 02/21/23
[2023-02-22] VITALS (12 sets, daily range): BP systolic 102–128; BP diastolic 49–70; PULSE 84–110; RESP 18–20; TEMP 36.4–37; O2SAT 95–98
[2023-02-22] MEDS: ALBUTEROL SULFATE NEB 2.5 MG/3 ML INH INHALATION ×3 (02:28→13:45)
[2023-02-22] MEDS: IPRATROPIUM BR 0.02% INH SOLN 0.5 MG/2.5 ML VIAL INHALATION ×3 (02:28→13:45)
[2023-02-22 06:25] LABS: Basophils Absolute Auto 0.1 K/mm3 (0.0-0.1); Basophils Percent Auto 0.6 % (0.2-1.2); Eosinophils Absolute Auto 0.2 K/mm3 (0-0.3); Eosinophils Percent Auto 2.6 % (0-4.4); Hematocrit 35.2 % (42.0-52.0); Hemoglobin 11.3 g/dL (14.0-18.0); Immature Granulocyte Absolute 0.22 K/mm3 (0.00-0.031); Immature Granulocyte Percent A 2.7 % (0-0.5); Lymphocytes Absolute Auto 1.22 K/mm3 (0.9-3.2); Lymphocytes Percent Auto 15.1 % (18.3-44.2); Mean Corpuscular HGB Conc 32.1 g/dl (32-36); Mean Corpuscular Hemoglobin 30.2 pg (26-34); Mean Corpuscular Volume 94.1 fl (80-100); Mean Platelet Volume 9.1 fl (7.4-10.4); Monocytes Absolute Auto 0.7 K/mm3 (0.1-0.6); Neutrophils Absolute Auto 5.8 K/mm3 (1.3-6.7); Platelet Count Result 204 k/mm3 (150-375); Red Blood Count 3.74 M/mm3 (4.6-6.20); Red Cell Distribution Width 13.3 % (11.5-14.5); White Blood Count 8.1 K/mm3 (4.5-10.0)
[2023-02-22 06:36] LABS: Alanine Aminotransferase 17 U/L (6-50); Albumin Level 2.6 g/dL (3.5-5.1); Alkaline Phosphatase 65 U/L (38-126); Anion Gap 4 mmol/L (8-16); Aspartate Amino Transferase 20 U/L (17-59); Bilirubin,Total 0.6 mg/dL (0.2-1.3); Blood Urea Nitrogen 20 mg/dL (9-20); Calcium 8.3 mg/dL (8.4-10.2); Carbon Dioxide 33 mmol/L (22-30); Chloride 97 mmol/L (98-107); Estimated CRCL calculation 47 ml/min; Estimated Glomerular Filt Rate > 60; Glucose 101 mg/dL (65-110); Potassium 3.5 mmol/L (3.4-5.0); Sodium 134 mmol/L (137-145)
[2023-02-22] MEDS: GABAPENTIN 300 MG CAPSULE PO ×2 (08:25→12:41)
[2023-02-22] MEDS: ENOXAPARIN 40 MG/0.4 ML SYRINGE SUB-Q (08:25)
[2023-02-22] MEDS: PANTOPRAZOLE 40 MG TABLET PO (08:25)
[2023-02-22] MEDS: risperiDONE 1 MG TABLET 2 MG PO (08:25)
[2023-02-22] MEDS: ACETAMINOPHEN 325 MG TABLET 650 MG PO (08:25)
[2023-02-22] MEDS: AZITHROMYCIN 500 MG/NS 250 ML 500 MG/250 ML BAG 250 MG IVPB (08:26)
--- NOTE | 2023-02-22 13:53 | PM.DS ---
DS: Admitting Diagnosis Discharge Date 02/22/23 Admitting Diagnosis COVID-19 Infection DS: Summary Hospital Course Reason for hospitalization: COVID-19 infection Acute hypoxic respiratory failure Hospital Course: Patient is 77-year-old male with history of COPD on home oxygen of 4 L comes to the hospital with generalized weakness.? Patient's is at bedside in addition given some detailed history at that time.? Patient has been progressively getting weak with productive cough and shortness of breath patient unable to get up go to the bathroom.? Has lost his appetite and taste.? Cough has been productive of lot of phlegm no chest pain no nausea vomiting hematemesis or chills.? Patient was admitted ED and was noted to be COVID positive He was managed with Bronchodilators, azithromycin, Lovenox and supplemental oxygen Significantly deconditioned; his claims this is his baseline and was willing to take him back home when deemed fit to return. He is poorly verbal and often somnolent; makes grunting sounds and expresses non-verbal frustration cues which do little to halle his concerns if any exist. 02/22/23: He will be discharged today on Augmentin with Home health care services. Status at Discharge Functional status at discharge: bed bound Overall status at discharge: patient is progressing back to baseline Time Spent with Patient Time attestation: Total time spent providing and/or coordinating discharge services: Exam Const: General: no acute distress Eyes: General: appearance normal, both eyes and all related structures Neck: Neck: supple Resp: Auscultation: rhonchi and diminished lung sounds Cardio: Rate: regular rate Rhythm: regular rhythm Skin: General skin exam: normal color Neuro: Motor exam (neuro): Abnormal motor strength present Extrem: General: normal to inspection Psych: Other: non-verbal DS: Data Data Completed and Pending Labs on day of discharge: Labs from last 24 hours 02/22/23 06:11 WBC 8.1 RBC 3.74 L Hgb 11.3 L Hct 35.2 L MCV 94.1 MCH 30.2 MCHC 32.1 RDW 13.3 Plt Count 204 MPV 9.1 Immature Gran % (Auto) 2.7 H Neut % (Auto) 71.0 Lymph % (Auto) 15.1 L [place] % (Auto) 8.0 Eos % (Auto) 2.6 Baso % (Auto) 0.6 Lymph # (Auto) 1.22 [place] # (Auto) 0.7 H Eos # (Auto) 0.2 Baso # (Auto) 0.1 Abs Immat Gran (auto) 0.22 H Absolute Neuts (auto) 5.8 Absolute Nucleated RBC 0.0 Nucleated RBC % 0.0 Sodium 134 L Potassium 3.5 Chloride 97 L Carbon Dioxide 33 H Anion Gap 4 L BUN 20 Creatinine 1.10 Estim Creat Clear Calc 47 Estimated GFR > 60 Glucose 101 Calcium 8.3 L Total Bilirubin 0.6 AST 20 ALT 17 Alkaline Phosphatase 65 Total Protein 5.0 L Albumin 2.6 L Discharge Plan Discharge Attending physician on discharge: Alex Velez Discharging Clinician: Alex Velez Anticipated Discharge Date/Time: 02/22/23 13:53 Patient Disposition: Home Health Service Activity: as tolerated Diet: heart healthy Discharge Instructions: Care Coordination: Patient to have [facility] for PT/OT eval and treat and custodial. Their phone number is [phone] if you have any questions. They will contact you to schedule their first visit. Patient Instructions: Antibiotic Form Stand Alone Forms: General Discharge Information Follow-up/Referrals: Marisol,Ganesh Barillas MD [Primary Care Provider] - Discharge Medications: New amoxicillin-pot clavulanate [Augmentin] 500-125 mg tablet 1 tablet PO TID Qty: 20 0RF Continued ipratropium-albuterol 0.5 mg-3 mg(2.5 mg base)/3 mL Solution For Nebulization 3 ml INHALATION PRN PRN (Reason: Shortness Of Breath Or Wheezing) omeprazole 40 mg capsule,delayed release(DR/EC) 40 mg PO DAILY risperidone 2 mg tablet 2 mg PO DAILY gabapentin 300 mg capsule 300 mg PO TID budesonide 0.5 mg/2 mL Suspension For Nebulization 0.5 mg inhalation PRN
== END 2023-02-22 16:26 | disposition home health service (06) | DRG 179 ==
LOC: ANHED 20:43 → ANH3MED 23:07
PROVIDERS: Emergency Medicine; Internal Medicine; Admitting Provider Internal Medicine; Emergency Provider Emergency Medicine; PCP Internal Medicine; Visit Provider Internal Medicine
DX: U07.1 COVID-19 (principal); J44.9 Chronic obstructive pulmonary disease, unspecified; I10 Essential (primary) hypertension; Z99.81 Dependence on supplemental oxygen; Z87.891 Personal history of nicotine dependence
CPT/HCPCS: 36415; 71045; 80053; 80076; 81001; 82248; 85025; 85027; 85055; 85610; 87040; 87637; 93005; 94640; 96361; 96365; 96366; 96374; 96376; 97110; 97161; 97166; 97530; 97535; 99285; A9270; G0378; J0248; J0456; J1100; J1650; J2930; J7030

== ENCOUNTER 2023-03-10 10:36 | Outpatient (NON) | payer OTHER, MEDICAID, SELFPAY ==
[2023-03-10 11:24] LABS: Appearance Urine Clear (Clear); Color Urine Yellow (Yellow); Protein Urine Negative (Negative); Specific Grav Ur >= 1.030 (1.001-1.035)
[2023-03-10 11:25] LABS: Add Urine Microscopic? NO; Bilirubin Urine Negative (Negative); Blood Urine Negative (Negative); Glucose Urine UA Negative (Negative); Ketones Urine Negative (Negative); Leukocyte Esterase Ur Negative LEU/UL (Negative); Nitrate Urine Negative (Negative)
== END 2023-03-10 10:37 | disposition home or self-care (01) ==
PROVIDERS: PCP Internal Medicine; Visit Provider Internal Medicine
DX: N39.0 Urinary tract infection, site not specified (principal); J96.01 Acute respiratory failure with hypoxia; I10 Essential (primary) hypertension
CPT/HCPCS: 81003

== ENCOUNTER 2023-03-16 13:42 | Emergency (ER) | payer OTHER, MEDICAID, SELFPAY ==
--- NOTE | ~2023-03-16 | CT_ITS ---
EXAMINATION: CT abdomen pelvis wo con DATE: 03/16/2023 17:55 INDICATION: Hematuria. Dysuria. TECHNIQUE: Computed tomography (CT) of the abdomen and pelvis was performed without intravenous contr ast. Automated exposure control and iterative reconstruction technique were employed. The dose-length product was 307.60 mGy-cm. COMPARISON: CT abdomen and pelvis 04/15/2017 FINDINGS: The visualized portions of the lung bases demonstrate emphysema and mild atelectasis. No pl eural effusion. The heart size is normal. There are coronary artery calcifications. No pericardial ef fusion. The liver, gallbladder, spleen, pancreas, and right adrenal gland are normal. There is a 2.7 cm mass in left adrenal gland measuring soft tissue attenuation, increased from 1.7 cm on 04/15/2017, l ikely an adenoma. The kidneys are normal. 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 There are no dilated loops of bowel. The appendix is normal. There a re no pathologically enlarged lymph nodes. There is no free intraperitoneal fluid. There are divertic pavan of the duodenum. There is severe lumbar spondylosis. IMPRESSION: 1. 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 Surgical consultation is recommended. Reviewed, dictated and finalized at location E. MA PROGRAM MANAGER IMPRESSION: 1. 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 Surgical consultation is recom mended.
[2023-03-16 13:46] VITALS: BP 105/55; PULSE 88; RESP 16; TEMP 36.4; O2SAT 97
[2023-03-16 15:20] LABS: Appearance Urine Cloudy (Clear); Bacteria Urine None Seen /hpf; Bilirubin Urine Negative (Negative); Blood Urine 3+ (Negative); Color Urine Yellow (Yellow); Glucose Urine UA Negative (Negative); Ketones Urine Negative (Negative); Leukocyte Esterase Ur 3+ LEU/UL (Negative); Nitrate Urine Negative (Negative); Non Pathogenic Casts 0-2; Protein Urine Trace mg/dL (Negative); Specific Grav Ur 1.009 (1.001-1.035); Squamous Epithelial Cell Urine None seen /hpf (Few); Urobilinogen Urine 0.2 mg/dL (<2.0); WBC Urine >100 /hpf; pH Urine 5.5 (5.0-9.0)
[2023-03-16 15:26] LABS: Add Urine Microscopic? YES
[2023-03-16] MEDS: SODIUM CHLORIDE 0.9% IV 1,000 ML 999 ML IV CONT ×2 (15:47→18:14)
[2023-03-16 15:55] LABS: Basophils Percent Auto 0.5 % (0.2-1.2); Eosinophils Absolute Auto 0.1 K/mm3 (0-0.3); Eosinophils Percent Auto 1.7 % (0-4.4); Hematocrit 38.7 % (42.0-52.0); Hemoglobin 12.1 g/dL (14.0-18.0); Immature Granulocyte Absolute 0.04 K/mm3 (0.00-0.031); Immature Granulocyte Percent A 0.5 % (0-0.5); Lymphocytes Absolute Auto 1.78 K/mm3 (0.9-3.2); Mean Corpuscular HGB Conc 31.3 g/dl (32-36); Mean Corpuscular Hemoglobin 30.2 pg (26-34); Mean Corpuscular Volume 96.5 fl (80-100); Mean Platelet Volume 8.8 fl (7.4-10.4); Monocytes Absolute Auto 0.6 K/mm3 (0.1-0.6); Monocytes Percent Auto 6.9 % (2.6-8.5); Neutrophils Absolute Auto 5.5 K/mm3 (1.3-6.7); Neutrophils Percent Auto 68.4 % (45.5-73.1); Platelet Count Result 287 k/mm3 (150-375); Red Blood Count 4.01 M/mm3 (4.6-6.20); Red Cell Distribution Width 13.4 % (11.5-14.5); White Blood Count 8.1 K/mm3 (4.5-10.0)
[2023-03-16 16:06] LABS: Alanine Aminotransferase 10 U/L (6-50); Albumin Level 3.1 g/dL (3.5-5.1); Alkaline Phosphatase 83 U/L (38-126); Anion Gap 4 mmol/L (8-16); Aspartate Amino Transferase 18 U/L (17-59); Bilirubin,Total 0.4 mg/dL (0.2-1.3); Blood Urea Nitrogen 27 mg/dL (9-20); Calcium 8.7 mg/dL (8.4-10.2); Carbon Dioxide 31 mmol/L (22-30); Chloride 104 mmol/L (98-107); Creatine Kinase < 20 U/L (55-170); Estimated CRCL calculation 43 ml/min; Estimated Glomerular Filt Rate 58; Glucose 104 mg/dL (65-110); Potassium 4.4 mmol/L (3.4-5.0); Sodium 139 mmol/L (137-145)
[2023-03-16 16:20] LABS: Partial Thromboplastin Time 29.2 SECONDS (22.3-36.8); Prothrombin Time 13.3 Seconds (11.1-14.7)
--- NOTE | 2023-03-16 17:42 | ED.MALEGU ---
HPI - Male Genitourinary General Chief complaint: Urogenital-Male Stated complaint: hematuria Time Seen by Provider: 03/16/23 15:07 Source: patient and family Limitations: other (chronic memory loss) History of Present Illness HPI Narrative: Patient is a 77-year-old male presents to the emergency department accompanied by his for urinary discomfort. Patient began complaining of burning when he pees over the past approximately 12-24 hours has also been experiencing frequency and urgency addition is some decreased urine output. notes that the patient had a recent urinary tract infection mostly 1 month ago and took antibiotics to completion under repeat urine test was performed and there were told that it looked good. Patient denies hematuria, history kidney stones, abdominal pain, fever, vomiting, diarrhea, bloody bowel movements, recent injuries, recent illness, use of blood thinners. Related Data Home Medications Medication Instructions Recorded Confirmed budesonide 0.5 mg/2 mL suspension 0.5 mg inhalation PRN PRN wheezes 02/16/23 02/16/23 for nebulization gabapentin 300 mg capsule 300 mg PO TID 02/16/23 02/16/23 ipratropium 0.5 mg-albuterol 3 mg 3 ml inhalation PRN PRN Shortness 02/16/23 02/16/23 (2.5 mg base)/3 mL nebulization Of Breath Or Wheezing soln omeprazole 40 mg capsule,delayed 40 mg PO DAILY 02/16/23 02/16/23 release risperidone 2 mg tablet 2 mg PO DAILY 02/16/23 02/16/23 Allergies Allergy/AdvReac Type Severity Reaction Status Date / Time No Known Allergies Allergy Mild Verified 02/15/23 19:17 Review of Systems Review of Systems: A 10 system review of systems was completed on the patient and is negative except for what is stated in the HPI. Nursing and ancillary documentation was reviewed. [facility] Family History Family History Mother Family history of diabetes mellitus in first degree relative Family history of heart disease in male family member before age 55 Social History Social History Smoking status: Former smoker Tobacco type: cigarettes Alcohol intake: never Substance use: never Substance use type: does not use Do You Feel Safe in your Home?: Yes Lack of Transportation: No Lack of Food: Never True Current Housing: I Have Housing Concerned About Future Housing: No Difficulty Paying Gas/Electric Bills: No Difficulty Paying for Meds: No Currently Unemployed: No Education: Grade School Difficulty w/ Childcare or Family Care: No Spiritual care concerns: No Comments At time of signature, I have reviewed and agree with nursing past medical, surgical, social and family history unless otherwise noted. Please see the nursing chart for further information. There is no relevant family history pertinent to the presenting complaint. Exam Narrative: CONST: No acute distress. Well nourished. HENMT: Head is normocephalic and atraumatic. Moist mucous membranes. No posterior oropharynx erythema. EYES: No conjunctival icterus, injection, or pallor. PERRL. NECK: No meningeal signs. RESP: Able to speak in full sentences. Normal respiratory effort. CTAB. CARDIO: Regular rate. Regular rhythm. 2+ DP and radial pulses bilaterally. GI: Nondistended. No tenderness to palpation. Soft. : No CVA tenderness to palpation. no penile or scrotal lesions, blood, swelling, tenderness palpation. SKIN: No rashes or lesions noted on exposed skin. NEURO: No focal neurological deficits. EXTREM/MSK/BACK: No pedal edema. PSYCH: Normal affect. Course Vital Signs Vital signs: Vital Signs Temperature 97.6 F 03/16/23 13:46 Pulse Rate 88 03/16/23 13:46 Respiratory Rate 16 03/16/23 13:46 Blood Pressure 105/55 L 03/16/23 13:46 Pulse Oximetry 97 03/16/23 13:46 Oxygen Delivery Nasal Cannula 03/16/23 13:46 Oxygen Flow Rate 3
[2023-03-16 19:30] VITALS: BP 119/65; PULSE 72; RESP 18; TEMP 36.4; O2SAT 100
== END 2023-03-16 19:30 | disposition home or self-care (01) ==
PROVIDERS: Physician Assistant; Emergency Provider Student in an Organized Health Care Education/Training Program; PCP Internal Medicine
DX: N39.0 Urinary tract infection, site not specified (principal); I71.40 Abdominal aortic aneurysm, without rupture, unspecified; Z87.891 Personal history of nicotine dependence
CPT/HCPCS: 36415; 74176; 80053; 81001; 82550; 85025; 85610; 85730; 87086; 96361; 96365; 99284; J0696; J7030